=== PATIENT | female | born 1990 | race African-American/Black ===

== ENCOUNTER 2017-02-10 06:03 | Emergency (ER) | payer SELFPAY ==
[~2017-02-10] VITALS: Ht 160 cm; Wt 77.0 kg
[~2017-02-10 06:03] MED LIST: PRENATAL VIT
[2017-02-10] MEDS ORDERED: KETOROLAC 60MG/2ML VIAL IM ONE (07:00)
[2017-02-10 07:50] VITALS: BP 125/77
== END 2017-02-10 08:40 | disposition home or self-care (01) ==
LOC: ER 08:36
DX: S39.012A Strain of muscle, fascia and tendon of lower back, initial encounter (principal); X58.XXXA Exposure to other specified factors, initial encounter; Y93.89 Activity, other specified; Y92.89 Other specified places as the place of occurrence of the external cause; Y99.8 Other external cause status
CPT/HCPCS: 96372; 99283; J1885

== ENCOUNTER 2017-10-08 13:28 | Emergency (ER) | payer SELFPAY ==
[~2017-10-08] VITALS: Ht 154.9 cm; Wt 63.0 kg
[2017-10-08 14:26] VITALS: BP 113/79
== END 2017-10-08 17:06 | disposition home or self-care (01) ==
LOC: ER 14:06
DX: S63.502A Unspecified sprain of left wrist, initial encounter (principal); S60.812A Abrasion of left wrist, initial encounter; S20.319A Abrasion of unspecified front wall of thorax, initial encounter; V49.40XA Driver injured in collision with unspecified motor vehicles in traffic accident, initial encounter; Y93.89 Activity, other specified; Y92.410 Unspecified street and highway as the place of occurrence of the external cause; Z72.0 Tobacco use
CPT/HCPCS: 81025; 99282